=== PATIENT | female | born 1965 | race Two or more races ===

== ENCOUNTER 2022-07-08 16:26 | Emergency (ER) | payer SELFPAY ==
[~2022-07-08] VITALS: Ht 165.1 cm; Wt 49.9 kg
[2022-07-08 16:43] VITALS: BP 129/83
[2022-07-08] MEDS ORDERED: AMOX-430 PO (16:56)
== END 2022-07-08 17:01 | disposition home or self-care (01) ==
LOC: ER 16:40
DX: L03.011 Cellulitis of right finger (principal)

== ENCOUNTER 2022-09-04 15:06 | Emergency (ER) | payer MEDICAID ==
[~2022-09-04] VITALS: Ht 165.1 cm; Wt 49.9 kg
[~2022-09-04 15:06] MED LIST: AMOX-430 PO
[2022-09-04 15:24] VITALS: BP 128/60
--- NOTE | 2022-09-04 16:09 | NUR ---
TO CHAIR 1,NO APPARENT CHANGE IN CONDITION
--- NOTE | 2022-09-04 16:10 | NUR ---
BIBS HIT HER HEAD AGAINST MAILBOX 2 HRS AGO AFTER BENDING OVER. PAIN 5/10 ON PAIN SCALE. VITALS ARE WITHIN NORMAL LIMITS. AWAITING MD MA.
--- NOTE | 2022-09-04 17:39 | NUR ---
Patient discharged to home in stable condition. Written and verbal after care instructions given. Patient verbalizes understanding of instruction.
== END 2022-09-04 17:40 | disposition home or self-care (01) ==
LOC: ER 15:06
DX: S01.01XA Laceration without foreign body of scalp, initial encounter (principal); Z60.2 Problems related to living alone; W22.8XXA Striking against or struck by other objects, initial encounter; Y93.89 Activity, other specified; Y92.89 Other specified places as the place of occurrence of the external cause; Y99.8 Other external cause status